=== PATIENT | female | born 1950 | race Caucasian/White ===

== ENCOUNTER 2019-05-10 15:06 | Emergency (ER) | payer MEDICARE, OTHER ==
[2019-05-10 15:57] VITALS: BP 190/104
--- NOTE | 2019-05-10 17:29 | UC ---
Lower Extremity/Ankle HPI - HPI Summary HPI Summary: Patient presents to urgent care for evaluation of her feet. Patient states over the last 2 weeks she's had some intermittent swelling of her right leg. Patient states her foot seems swollen. Patient states she had pain and was limping but doesn't have any pain now. Patient takes Motrin as well as Aleve in the morning for arthritis pain. Patient wearing flip flops. Patient states she wanted checked out because the swelling. No history of blood clots. No calf pain. No nausea vomiting. Patient states she is making good urine. Patient did not call her PCP. Medications reviewed this visit. - History of Current Complaint Chief Complaint: UCLowerExtremity Stated Complaint: SWOLLEN RT FOOT Time Seen by Provider: 05/10/19 17:14 Hx Obtained From: Patient ?: No Onset/Duration: Gradual Onset Severity Initially: Mild Severity Currently: Mild Pain Intensity: 0 - no pain at present - Allergies/Home Medications Allergies/Adverse Reactions: Allergies Allergy/AdvReac Type Severity Reaction Status Date / Time No Known Allergies Allergy Verified 05/10/19 15:57 Home Medications: Home Medications Ibuprofen TAB* [Motrin TAB* 600 MG] 600 mg PO DAILY 05/10/19 [History Confirmed 05/10/19] PMH/Surg Hx/FS Hx/Imm Hx Previously Healthy: Yes Cardiovascular History: Hypertension - Surgical History Surgical History: Yes Surgery Procedure, Year, and Place: left leg SURGERY; lumpectomy LEFT BREAST - Family History Known Family History: Positive: Hypertension, Non-Contributory - Social History Occupation: Employed Full-time Lives: With Family Alcohol Use: None Substance Use Type: None Smoking Status (MU): Former Smoker Type: Cigarettes Have You Smoked in the Last Year: No When Did the Patient Quit Smoking/Using Tobacco: over 20 years ago - Immunization History Most Recent Influenza Vaccination: none Most Recent Tetanus Shot: unknown Most Recent Pneumonia Vaccination: never Review of Systems All Other Systems Reviewed And Are Negative: Yes Constitutional: Positive: Negative Skin: Positive: Negative Eyes: Positive: Negative Respiratory: Positive: Negative Cardiovascular: Positive: Negative Gastrointestinal: Positive: Negative Musculoskeletal: Positive: Other: - pain in right foot - resolved + right foot edema Is Patient Immunocompromised?: No Physical Exam - Summary Physical Exam Summary: Vital Signs Reviewed: Yes A+Ox3, no distress Eyes: Conjunctiva Clear, ADRY. EOM intact and full ENT: Hearing grossly normal TM x 2 clear, mmoist, uvula midline, no exudate, no erythema Neck: Positive: Supple Respiratory: Positive: No respiratory distress, No accessory muscle use + CTA throughout no w/r Cardiovascular: RRR nl s1, s2 no m/r CBT <2 sec 1+ edema to foot and ankle b/l 2+ PT, DP, foot warm abd soft + BS nt/nd no guarding, no distension Musculoskeletal Exam: + SLE + flex.ext knee, ankle no pain with palpation foot , ankle, tib/fib Neurological: Positive: Alert, + sensation throughout + gross sensation throughout Psychological: Positive: Normal Response To Family Skin: Positive: no rash, no ecchymosis. no open wounds Triage Information Reviewed: Yes Vital Signs: Initial Vital Signs Temp 99.3 F 05/10/19 15:50 Pulse 66 05/10/19 15:50 Resp 12 05/10/19 15:50 BP 190/104 05/10/19 15:50 Pulse Ox 99 05/10/19 15:50 Diagnostics - Radiology No standard instances Radiology Interpretation Completed By: Radiologist - Patient Name: ALVARO LANGLEY Medical Record#: [id number] Ordering Physician: Cass Knight MD Acct.#: [id number] : 1950 Age: 68 Sex: F Location: [facility] Exam Date: 05/10/191735 ADM Status: REG ER Order Information: FOOT RIGHT 3+ VWS Accession Number: [id number] CPT: 15881 INDICATION: One-week of plantar right foot pain COMPARISON: None. TECHNIQUE: 3 views of the right foot were obtained. FINDINGS : The adequately corticated bones are properly aligned. Joint spaces appear maintained. No fracture, dislocation or focal bony abnormality is seen. IMPRESSION: Normal radiograph of the right foot. If the patient's symptoms persist, follow-up imaging is recommended. <Electronically signed by Donnell Garcia MD in OV> 1807 Dictated By: Donnell Garcia MD Dictated Date/Time: 05/10/191807 Transcribed Date/Time: 05/10/191806 Copy to: CC:Cass Knight MD; Andrew Dueñas MD Imaging - [facility] Imaging - [facility] [id number] [place] [id number] [place] [address] ph [phone]) ph ([phone]) ph ([phone]) This report is only to be considered final once signed by the Provider(s) as displayed in the "< Electronically Signed by >" field (s). Absence of a signature indicates the report is in a draft status and still needs to be finalized. In the event this document was created by someone other than the signing Provider, the individual initiating the document will be listed in the "Entered by:" or "Dictated by:" slade. 1 of 1 Patient Name: ALVARO LANGLEY Medical Record#: [id number] Ordering Physician: Cass Knight MD Acct.#: [id number] : 1950 Age: 68 Sex: F Location: [facility] Exam Date: 05/10/191736 ADM Status: REG ER Order Information : VL LOWER EXT VEINS RIGHT Accession Number: [id number] CPT: 63549 EXAM : US Duplex Right Lower Extremity Veins, Limited EXAM DATE/TIME: 2018 6:17 PM CLINICAL HISTORY: 68 years old, female; Edema, localized; Lower extremity, right; Additional info: Edema le and foot ? dvt TECHNIQUE: Imaging protocol: Real-time Duplex ultrasound of the Right Lower Extremity with 2-D honeycutt scale, color Doppler flow and spectral waveform analysis. Limited exam was focused on the right lower extremity veins. COMPARISON: No relevant prior studies available. FINDINGS: Right deep veins: Unremarkable. The common femoral, femoral, proximal profunda femoral and popliteal veins are patent without thrombus. Normal Doppler waveforms. Normal compressibility and/ or augmentation response. Right superficial veins: Unremarkable. Saphenofemoral junction is patent without thrombus. Soft tissues: Unremarkable. IMPRESSION: No acute findings. No evidence of deep vein thrombosis. To contact [facility] with a general question: [facility] - [phone] For direct physician to physician contact: Physician Hotline - [facility] (ad Facility ID #[id number]) <Electronically signed by Huseyin Kulkarni MD in OV> 05/10/191827 Dictated By: Huseyin Kulkarni MD Dictated Date/Time: 1827 Transcribed Date/Time: Copy to: This report is only to be considered final once signed by the Provider(s) as displayed in the "< Electronically Signed by >" field (s). Absence of a signature indicates the report is in a draft status and still needs to be finalized. In the event this document was created by someone other than the signing Provider, the individual initiating the document will be listed in the "Entered by:" or "Dictated by:" slade. 1 of 2 Lower Extremity Course/Dx - Course Course Of Treatment: Patient presents to urgent care for evaluation of swelling to her feet right worse than left. Patient had pain in her right foot and was limping earlier this week. That has since resolved. Patient denies any other complaints. Patient didn't has baseline arthritis for which she takes Aleve and Motrin. On exam vital signs are stable. Patient does have 1+ edema to her foot in her ankle right worse than left. No focal pain. We will check x-ray as well as ultrasound. This is negative likely discharge patient with some blood work looking at her kidney function instructed to follow-up with her primary on Monday. Patient comfortable in agreement with plan. Strict return precautions. Patient does not have any cardiac or respiratory complaints that are concerning at today's exam. BP elevated - h/o same - pt anxious related to today's condition will recheck prior to d/c recommend f/u with pcp - Differential Dx/Diagnosis Provider Diagnosis: Leg edema Discharge - Sign-Out/Discharge Documenting (check all that apply): Patient Departure All imaging exams completed and their final reports reviewed: Yes - Discharge Plan Condition: Stable Disposition: HOME Patient Education Materials: Leg Edema (ED) Referrals: Andrew Dueñas MD [Primary Care Provider] - (3-5 days ) Additional Instructions: - stay well hydrated. Drink plenty of non-alcoholic, non-caffinated beverages - elevate your legs - this will help with swelling - it is recommended you wear shoes with good support - your blood tests will take 1-2 days to return - if there is concerning results , you will receive a call from a care team truck driver If you developed increased pain, shortness of breath, fever, lightheadedness, chest pain - it is recommended you go to the emergency department for further evaluation and treatment Contact your doctor on Monday to schedule a follow-up appointment - Billing Disposition and Condition Condition: STABLE Disposition: Home
[2019-05-11 14:44] LABS: ABS Eosinophils 0.2 10^3/ul (0-0.6); ABS Lymphocytes 1.3 10^3/ul (1.0-4.8); ABS Monocytes 0.5 10^3/ul (0-0.8); ABS Neutrophils 3.8 10^3/ul (1.5-7.7); Hematocrit 39 % (35-47); Hemoglobin 13.6 g/dL (12.0-16.0); Lymphocyte % 22.7 %; Mean Corpuscular HGB Conc 35 g/dL (31-36); Mean Corpuscular Hemoglobin 30 pg (27-31); Mean Corpuscular Volume 86 fL (80-97); Mean Platelet Volume 7.3 fL (7.4-10.4); Nucleated Red Blood Cells % 0.2; Platelet Count 254 10^3/uL (150-450); Red Blood Count 4.59 10^6 /uL (3.70-4.87); Red Cell Distribution Width 14 % (10-15); White Blood Count 5.9 10^3/uL (3.5-10.8)
[2019-05-11 14:57] LABS: Albumin 4.2 g/dL (3.2-5.2); Albumin/Globulin Ratio 1.9 (1-3); BUN/Creatinine Ratio 34.9 (8-20); Calcium 9.4 mg/dL (8.6-10.3); EGFR African American 113.7 (>60); Globulin 2.2 g/dL (2-4); Total Bilirubin 0.6 mg/dL (0.2-1.0); Total Protein 6.4 g/dL (6.4-8.9)
--- NOTE | 2019-05-12 09:37 | UC ---
- Progress Note Progress Note: Patient's lab results reviewed today CBCD normal CMP with high BUN/creatinine ratio, which could be secondary to high-protein diet and with enhanced tissue breakdown due to hemorrhage, trauma, or glucocorticoid therapy. She does have foot pain and swelling and can lead to this. Her kidney function is normal. RN to call the patient and inform that her kidney function is normal but She should recheck with her primary care doctor for follow-up on this and recheck labs at some point. Course/Dx - Diagnoses Provider Diagnoses: Leg edema Discharge - Sign-Out/Discharge Documenting (check all that apply): Post-Discharge Follow Up All imaging exams completed and their final reports reviewed: Yes - Discharge Plan Condition: Stable Disposition: HOME Patient Education Materials: Leg Edema (ED) Referrals: Andrew Dueñas MD [Primary Care Provider] - (3-5 days ) Additional Instructions: - stay well hydrated. Drink plenty of non-alcoholic, non-caffinated beverages - elevate your legs - this will help with swelling - it is recommended you wear shoes with good support - your blood tests will take 1-2 days to return - if there is concerning results , you will receive a call from a care produce team member If you developed increased pain, shortness of breath, fever, lightheadedness, chest pain - it is recommended you go to the emergency department for further evaluation and treatment Contact your doctor on Monday to schedule a follow-up appointment - Billing Disposition and Condition Condition: STABLE Disposition: Home
== END 2019-05-10 18:58 | disposition home or self-care (01) ==
LOC: UCEAST 15:06
DX: R60.9 Edema, unspecified (principal); I10 Essential (primary) hypertension; Z87.891 Personal history of nicotine dependence
CPT/HCPCS: 36415; 80053; 85025; 99211; G0463

== ENCOUNTER 2023-07-28 09:52 | Observation (INO) ==
[~2023-07-28 09:52] MED LIST: Buffered Lidocaine 1% SYRIN 1 ml INTRADERM ONE; Lactated Ringers 1000 ml BAG 1,000 ML IV SCH; Propofol 10 MG/ML 20 ML BTL ONE
[2023-07-28] MEDS ORDERED: Lidocaine 2% PF 5 ML VIAL ONE (09:54)
[2023-07-28] MEDS ORDERED: Ondansetron 4 mg VIAL 2 MG/ML 2 ml VIAL ONE ×2 (10:01→13:56)
[2023-07-28] MEDS ORDERED: ceFAZolin 2 GM in NS PREMIX 2 GM/100 ML BAG IVPB ONE (10:14)
[2023-07-28] MEDS ORDERED: Glycopyrrolate IV 0.2 MG/ML 1 ML VIAL ONE ×2 (10:39→13:57)
[2023-07-28 10:48] LABS: Rapid COVID-19 Molecular Undetected (Undetected)
[2023-07-28] MEDS ORDERED: Midazolam 2 mg/2 ml VIAL 1 mg/ml 2 ml VIAL (2 mg) ONE (11:35)
[2023-07-28] MEDS ORDERED: ROPIVACAINE 5 MG/ML 30 ML BTL (0.5%) ONE ×2 (11:41→11:49)
[2023-07-28] MEDS ORDERED: Naloxone 0.4 mg VIAL 0.4 mg/ml 1 ml VIAL IV PRN (12:09)
[2023-07-28] MEDS ORDERED: fentaNYL 250 mcg/5 ml 50 MCG/ML 5 ml VIAL (250 MCG) ONE (13:31)
[2023-07-28] MEDS ORDERED: Phenylephrine 40 mcg/mL 10mL (400mcg) SYRINGE ONE (13:43)
[2023-07-28] MEDS ORDERED: Sterile Water for Inj 10 ML ONE (13:46)
[2023-07-28] MEDS ORDERED: Dexamethasone IV 4 MG/ML VIAL 1 ml VIAL ONE (13:56)
[2023-07-28] MEDS ORDERED: Phenylephrine IV 10 MG/ML 1 ml VIAL ONE (13:59)
[2023-07-28] MEDS ORDERED: Ketamine HCL 50 mg/ml 10 ml VIAL (500 MG) ONE (14:04)
[2023-07-28] MEDS ORDERED: Morphine 2 MG/ML SYRINGE IV PRN (14:13)
[2023-07-28] MEDS ORDERED: Lactulose 30 ml UDC PO PRN (14:13)
[2023-07-28] MEDS ORDERED: Ondansetron 4 mg VIAL 2 MG/ML 2 ml VIAL IV PRN (14:13)
[2023-07-28] MEDS ORDERED: Ondansetron ODT 4 mg TAB 4 MG TAB PO PRN (14:13)
[2023-07-28] MEDS ORDERED: Magnesium Hydroxide LIQ 30 ML UDC PO PRN (14:13)
[2023-07-28] MEDS ORDERED: ceFAZolin 1 GM ADVAN 1 GM in NS 0.9% 50 ML 50 ML IVPB SCH (15:00)
[2023-07-28] MEDS ORDERED: HYDROmorphone 1 MG/1 ML SYRINGE ONE (16:04)
[2023-07-28] MEDS: HYDROmorphone 1 MG/1 ML SYRINGE IV PRN ×4 (16:08→16:58)
[2023-07-28] MEDS: Lactated Ringers 1000 ml BAG 1,000 ML IV SCH (18:07)
[2023-07-28] MEDS: Magnesium Hydroxide LIQ 30 ML UDC PO SCH (21:28)
[2023-07-28] MEDS: ceFAZolin 1 GM ADVAN 1 GM in NS 0.9% 50 ML 50 ML IVPB SCH (21:29)
[2023-07-29] MEDS: Lactated Ringers 1000 ml BAG 1,000 ML IV SCH (04:10)
[2023-07-29] MEDS: ceFAZolin 1 GM ADVAN 1 GM in NS 0.9% 50 ML 50 ML IVPB SCH ×2 (05:52→14:54)
[2023-07-29 05:57] LABS: Hematocrit 29.8 % (35-45); Hemoglobin 10.8 g/dL (11.5-14.3); Mean Platelet Volume 6.8 fL (7.5-11.2); Platelet Count 243 10^3/uL (150-450)
[2023-07-29 06:07] LABS: Calcium 8.7 mg/dL (8.6-10.3); Creatinine, Serum 0.82 mg/dL (0.51-0.95); Potassium 3.6 mmol/L (3.5-5.0)
[2023-07-29] MEDS: Magnesium Hydroxide LIQ 30 ML UDC PO SCH (08:18)
[2023-07-29] MEDS ORDERED: Vitamin THERAPEUTIC TAB PO SCH (09:00)
[2023-07-29 10:56] VITALS: BP 146/79
== END 2023-07-29 18:15 | disposition home or self-care (01) ==
LOC: OR 09:52 → SSU 09:52
PROVIDERS: ADMIT Orthopaedic Surgery Adult Reconstructive Orthopaedic Surgery; ATTEND Orthopaedic Surgery Adult Reconstructive Orthopaedic Surgery